=== PATIENT | female | born 1945 | race Caucasian/White ===

== ENCOUNTER 2024-01-10 18:43 | Emergency (ER) | payer MEDICARE, OTHER, SELFPAY ==
[2024-01-10 18:44] VITALS: BP 162/86
--- NOTE | 2024-01-10 19:40 | ED.MUSCINJ ---
HPI-Injury
General
Chief Complaint: Fall
Source: patient
Exam Limitations: none
Time Seen by Provider: 01/10/24 19:24
History of Present Illness-Injury
Is this injury a work related problem?: No
Is pt an associate of [facility]/[place]?: No
Initial Injury comments:
This is a 78 year old female that comes in with c/o left shoulder/arm pain. States that she tripped on a box and went down on the left shoulder. States that she has pain form the shoulder down to the elbow. States that she did not hit her head or
have any LOC. Denies any blood thinners. Denies any fever, chills, chest pain, SOB, abd pain, nausea, vomiting, diarrhea, headache, dizziness.
Past History
Past History
ED Past Medical History: HTN, Hypercholesterolemia and NIDDM
ED Past Surgical History: , Orthopedic (Left shoulder replacement, Right rotator cuff surgery) and Other (Cataracts)
Social History
Tobacco: Smoker
Alcohol: None
Drug: None
Personal:
Living: alone
Review of Systems
Review of Systems
All Other Systems: ROS reviewed and negative except as documented in HPI and ROS
Constitutional: Reports no symptoms; Denies fever or chills
EENT: Reports no symptoms
Respiratory: Reports no symptoms; Denies cough or trouble breathing
Cardiac: Reports no symptoms; Denies chest pain
ABD/GI: Reports no symptoms; Denies abdominal pain, nausea, vomiting or diarrhea
: Reports no symptoms
Musculoskeletal: Reports other (Left upper arm/shoulder pain)
Skin: Reports no symptoms
Neurological: Reports no symptoms; Denies dizzy or headache
Psychiatric: Reports no symptoms
Musculoskeletal Injury Exam
Musculoskeletal Injury Exam
Left Upper Arm:
Pain with Movement?: Moderate
Tender to palpation?: Mild
Soft tissue swelling?: Moderate
External deformity and angulation?: Mild
Joint effusion?: None
Contusion?: None
Hematoma-local bleeding into tissue?: None
Strain- Sprain- Tear (Connective tissue injury)?: None
Crepitus with movement?: No
Joint instability?: No
Malalignment/deformity?: No
Range of motion: Limited (Due to pain)
Distal skin color and temperature: normal-warm & good color
Capillary Refill: normal
Normal distal neurovascular exam?: Yes
Phy Exam
General Physical Exam
General Presentation: no apparent distress
General age: appears stated age
General Skin: warm and dry
General Habitus: elderly
General Mental: alert
General Hydration: appears well hydrated
ENT Exam
ENT Exam: TM's normal, pharynx normal and neck supple
Eye Exam
Eye Exam: EOMI
Musculoskeletal Exam
Musculoskeletal Exam: other (Negative for any cervical neck tenderness with palpation. Able to abduct, crossover, flex elbow and move wrist and fingers on right. Left upper arm swelling with tenderness over the humorous. )
Skin Exam
Skin Exam: normal color and no petechia
Psychiatric Exam
Psychiatric Exam: normal mood/affect
Injury Course
Orders/Labs/Results
Orders:
Orders
01/10/24 18:47
CR Humerus - Left Min 2 Views* Urgent
Comment:
Reason For Exam: fall
CR Shoulder, Trauma - Left Urgent
Comment:
Reason For Exam: fall
MDM/Problems Addressed
Differential Diagnosis Includes:
Humaral fracture, Left shoulder fracture or dispacement
MDM/Problems Addressed:
This is a 78 year old female that comes in with c/o fall. States that she tripped over a box and landed on the left shoulder. States that she can't move that arm.
Will get X-ray.
Back into see patient. Explained that she has a fracture at the base of the prosthesis. Will place in sling and have patient follow up with Dr. Mosher on Friday. Will give prescription for tramadole for pain. Patient to return with any concerns.
Chronic conditions affecting care:
Left shoulder surgery, Fracture left upper arm
Acute Exacerbation and/or Progression of Chronic Illness:
Shoulder surgery, Fracture left arm
*Radiology
Radiology exam reviewed: radiology read reviewed (Shoulder-acute periperosthetic fracture of the proximal left humerus at the level of the stem of the humeral prostheses with mild dispacement of fracture fracgments. The glenoid component of the
reverse total shoulder arthroplasty appears intact and well-positioned. The mild to distal segments of ) and other (X-ray cont- of the humerus are intact. The elbow joint allignment is maintained. )
*Pulse Oximetry
Patient hypoxic: no
*EKG
Interpreted by ED Provider?: NA
Rate: EKG- N/A
*Steam Turbine Assembler Interpretation
Rate: Steam Turbine Assembler- N/A
*Critical Care Note
Total Time (30-74mins, 75-104mins- exclusive of procedures): Not Applicable
ED Attending Note
-
Portions of this chart may have been created with voice recognition software.� Occasional wrong word or��sound alike� substitutions may have occurred due to the inherent limitations of voice recognition software.
Discharge Plan
Departure
Patient Disposition: Home (Routine Discharge)
Date of Disposition: 01/10/24
Time of Disposition: 19:54
Patient with high blood pressure during this ER visit?: Yes
Condition: Good
Covid-19: Not Applicable
Discharge Problem:
Fracture of proximal end of left humerus
Instructions: Preventing falls in adults, How to Use a Shoulder Sling, BLOOD PRESSURE, Narcotic Pain Medication, RICE Therapy
Prescriptions:
New
tramadol 50 mg tablet
50 mg PO Q8H PRN (Reason: Pain) Qty: 12 0RF
No Action
metformin 500 MG tablet
500 mg PO DAILY AT 0700
lisinopril-hydrochlorothiazide 1 EACH tablet
1 ea PO DAILY
simvastatin 40 MG tablet
40 mg PO 1800
glipizide 2.5 MG tablet extended release 24hr
2.5 mg PO DAILY
metformin 1,000 MG tablet
1,000 mg PO 1800
pioglitazone 30 MG tablet
30 mg PO DAILY
sennosides [senna] 1 TABLET tablet
2 tab PO BID 0RF
acetaminophen 325 MG tablet
650 mg PO Q4HWA 0RF
aspirin 325 MG tablet
325 mg PO DAILY 0RF
tramadol 50 MG tablet
25 mg PO Q6HPRN PRN (Reason: mild pain) 0RF
docusate sodium 100 MG capsule
100 mg PO BID 0RF
mupirocin 1 APPLIC ointment
1 applic intranasal BID 0RF
celecoxib 200 MG capsule
200 mg PO DAILY 0RF
tramadol [Ultram] 50 MG tablet
50 mg PO QID Qty: 30 0RF
tramadol 50 MG tablet
50 mg PO Q6HPRN PRN (Reason: moderate-severe pain) 0RF
hydrocodone-acetaminophen 5-325 mg tablet
1 tab PO Q4H PRN (Reason: Pain) Qty: 12 0RF
Referrals:
Chuy Mosher MD [Active] - Follow up in 2-3 days
Ruiz Brooke MD [Family Provider] -
Activity Restrictions/Additional Instructions:
As discussed, you have a fracture of the humerus that is just at the base of the prosthesis. Please use the sling when you are up moving around. Remove the sling to sleep and elevate on a pillow. Ice to the upper arm. You have had a prescription
sent to your Pharmacy for pain. You may also use Tylenol 1000mg every 6 hours for pain. Follow up with Dr. Mosher on Friday. IF YOU HAVE INCREASED OR CHANGING PAIN, OR YOU HAVE ANY OTHER CONCERNS PLEASE RETURN TO THE EMERGENCY ROOM.
Interventions
Interventions:
*Risk Screen - Suicide Last Done: 01/10/24 18:44
*General Assessment Last Done: 01/10/24 18:44
*Neglect/Abuse Screening Last Done: 01/10/24 18:44
Discharge Date and Time
Print Language: THAI
[2024-01-10] MEDS: TYLENOL 1000 MG PO (20:09)
[2024-01-10] MEDS: ULTRAM 50 MG PO (20:21)
== END 2024-01-10 21:12 | disposition home or self-care (01) ==
LOC: EMR 18:43
PROVIDERS: EMERGENCY PHYSICIAN Student in an Organized Health Care Education/Training Program; FAMILY PHYSICIAN Family Medicine
DX: M97.32XA Periprosthetic fracture around internal prosthetic left shoulder joint, initial encounter (principal); W18.09XA Striking against other object with subsequent fall, initial encounter; I10 Essential (primary) hypertension; E78.00 Pure hypercholesterolemia, unspecified; E11.36 Type 2 diabetes mellitus with diabetic cataract; F17.200 Nicotine dependence, unspecified, uncomplicated
CPT/HCPCS: 99283; 73030; 73060

== ENCOUNTER → 2024-01-16 12:58 | Outpatient (REF) | payer MEDICARE, OTHER, SELFPAY | LOC: HWRAD 12:58 | PROVIDERS: ATTENDING PHYSICIAN Physician Assistant Surgical; FAMILY PHYSICIAN Family Medicine | DX: Z96.612 Presence of left artificial shoulder joint (principal); S42.292A Other displaced fracture of upper end of left humerus, initial encounter for closed fracture | CPT/HCPCS: 73200 ==

== ENCOUNTER → 2024-01-19 13:51 | Outpatient (REF) | payer MEDICARE, OTHER, SELFPAY ==
[2024-01-19 15:15] LABS: % Basophils 0.6 % (0-2); % Eosinophils 2.1 % (0-6); % Immature Granulocytes 0.7 % (0-0.5); % Lymphocytes 24.8 % (20.5-51.1); % Monocytes 5.2 % (1.7-9.3); % Neutrophils 66.6 % (42.2-75.2); Absolute Basophils 0.1 10^3/uL (0-0.2); Absolute Eosinophils 0.2 10^3/uL (0-0.7); Absolute Immature Granulocytes 0.1 10^3/uL (0-0.05); Absolute Lymphocytes 2.6 10^3/uL (1.2-3.4); Absolute Monocytes 0.5 10^3/uL (0.1-0.6); Absolute Neutrophils 6.9 10^3/uL (1.4-6.5); Hematocrit 34.7 % (37.0-47.0); Hemoglobin 11.6 g/dL (12.0-16.0); Mean Corp Hgb Conc. 33.4 g/dL (33.0-37.0); Mean Corpuscular Hgb 33.8 pg (27.0-31.0); Mean Corpuscular Volume 101.2 fL (81.0-99.0); Mean Platelet Volume 10.6 fL (7.4-10.4); Nucleated Red Blood Cells % 0 %; Platelet Count 325 10^3/uL (130-400); Red Blood Cell Count 3.43 10^6/uL (4.20-5.40); Red Cell Dist. Width 14.4 % (11.5-14.5); White Blood Cell Count 10.3 10^3/uL (4.8-10.8)
[2024-01-19 15:59] LABS: ALT (SGPT) 24 U/L (0-35); AST (SGOT) 28 U/L (14-36); Albumin 4.3 g/dl (3.5-5.0); Alkaline Phosphatase 44 U/L (38-126); Blood Urea Nitrogen 15 mg/dl (7-17); Calcium 9.6 mg/dl (8.4-10.2); Carbon Dioxide 25 mmol/L (22-30); Chloride 102 mmol/L (98-107); Glucose 125 mg/dl (70-99); Potassium 4.7 mmol/L (3.5-5.1); Sodium 140 mmol/L (135-145); Total Bilirubin 0.7 mg/dl (0.2-1.3); Total Protein 6.9 g/dl (6.3-8.2); eGFR > 60.00
== END ==
LOC: REG 13:51
PROVIDERS: ATTENDING PHYSICIAN Specialist; FAMILY PHYSICIAN Family Medicine
DX: Z01.818 Encounter for other preprocedural examination (principal)
CPT/HCPCS: 36415; 80053; 85025; 87070; 93005

== ENCOUNTER 2024-01-20 13:00 | Inpatient (IN) | payer MEDICARE, OTHER, SELFPAY ==
[2024-01-20] VITALS (15 sets, daily range): BP systolic 123–163; BP diastolic 53–80; PULSE 91; O2SAT 97; BMI 27.9
[2024-01-20 06:39] LABS: Glucose - Point of Care 157 mg/dl (70-99)
[2024-01-20] MEDS: BACTROBAN NASAL 1 GRAM NASAL (06:49)
[2024-01-20] MEDS: TYLENOL 1000 MG PO (06:49)
[2024-01-20] MEDS: CELEBREX 200 MG PO (06:50)
[2024-01-20] MEDS: NORMOSOL-R/PLASMALYTE-A 1000 IV ×3 (06:50→13:54)
[2024-01-20 09:57] LABS: Glucose - Point of Care 178 mg/dl (70-99)
--- NOTE | 2024-01-20 12:26 | PTCARENOTE ---
Patient admitted from [facility] left reverse shoulder.Patient had a recent fall with fracture and said she has had terrible pain for the last ten days since the fall.She denies any pain now.Neurovascular assessment is within normal limits and
ongoing.The Primaseal dressing is intact with only scant drainage.The patient is in her bed with the call weller in reach.Her family is at the bedside.
--- NOTE | 2024-01-20 12:28 | W.PN.ORTHO ---
Today's Communication / Plan
-
D/c when clinically stable.
Assessment
.
Distal Motor Intact: Yes
Dressing:
Clean, dry and intact.
Assessment:
Closed displaced comminuted fracture of left humerus shaft s/p Revision of Reverse L TSA, ORIF of proximal humerus fracture, 01/20/24, by Dr. Mosher
- s/p L Reverse TSA [address] Mosher
- Tissue culture/gram stain pending
DVT prophylaxis - ASA, b/l venous foot pumps
HTN - + parameters - monitor BP
NIDDM, A1c 6.0 - monitor BS
- Resume home meds
- + SSI
Pre-op anemia - non-invasive hgb in AM
Hypercholesterolemia
Chronic low back pain
Depression
Osteopenia
Plan
.
Surgery / Date: Revision of Reverse L TSA by Dr. Mosher 01/20/24
DVT Prophylaxis: Aspirin
Activity:
Out of bed.
PT/OT
Discharge Plan: Home
Subjective
.
.:
Patient resting comfortably in bed.
L shoulder pain minimal and currently well tolerated.
Denies any new significant complaints.
Vital Signs and Labs
.
Vital Signs and Labs:
Temp Pulse Resp BP Pulse Ox
98.5 F 75 18 138/66 96
01/20/24 12:19 01/20/24 12:19 01/20/24 12:19 01/20/24 12:19 01/20/24 12:19
Physical Exam
-
HEENT: No pallor, cyanosis, or jaundice. Throat clear.
NECK: Supple. No JVD.
RESPIRATORY: Lungs clear to auscultation.
CVS: S1, S2 normal. RRR.�
ABDOMEN: Soft, non-tender. No distension.
EXTREMITIES: + LUE sling. Good ski topper b/l. Able to wiggle fingers b/l. Strength equal, no calf pain with palpation/dorsiflexion. Calves soft.
AIRCRAFT SERVICER: AOx3. No focal deficits. chinese language professor grossly intact
[2024-01-20] MEDS: ACTOS 30 MG PO (13:51)
[2024-01-20] MEDS: GLUCOPHAGE 500 MG PO (13:52)
[2024-01-20] MEDS: NOVOLOG FLEXPEN-MODERATE RESISTANCE SC (13:53)
[2024-01-20] MEDS: SYNTHROID 50 MCG PO (13:53)
[2024-01-20] MEDS: GLUCOTROL XL (EXTENDED RELEASE) 2.5 MG PO (14:43)
[2024-01-20] MEDS: ANCEF 5 IV ×2 (16:21→23:25)
[2024-01-20 17:17] LABS: Glucose - Point of Care 325 mg/dl (70-99)
[2024-01-20] MEDS: NOVOLOG FLEXPEN-MODERATE RESISTANCE 7 UNITS SC (17:17)
[2024-01-20] MEDS: LIPITOR 20 MG PO (17:18)
[2024-01-20] MEDS: GLUCOPHAGE 1000 MG PO (17:18)
[2024-01-20] MEDS: ASPIRIN 325 MG PO (17:18)
[2024-01-20] MEDS: COLACE PO (19:52)
[2024-01-20] MEDS: SENOKOT PO (19:52)
[2024-01-20] MEDS: BACTROBAN 2% OINTMENT 1 APPLIC NASAL (19:52)
[2024-01-20] MEDS: PEPCID 20 MG PO (21:17)
[2024-01-20 21:22] LABS: Glucose - Point of Care 259 mg/dl (70-99)
[2024-01-21 03:58] VITALS: BP 124/69
--- NOTE | 2024-01-21 04:31 | PTCARENOTE ---
Pt has been OOB to bathroom to void throughout this evening w standby assist x1. Assessment ongoing.
[2024-01-21] MEDS: SYNTHROID 50 MCG PO (05:31)
[2024-01-21 07:20] VITALS: BP 140/63
[2024-01-21 08:12] LABS: Glucose - Point of Care 114 mg/dl (70-99)
[2024-01-21] MEDS: NOVOLOG FLEXPEN-MODERATE RESISTANCE SC ×2 (08:12→12:02)
[2024-01-21] MEDS: ASPIRIN 325 MG PO (08:13)
[2024-01-21] MEDS: CELEBREX 200 MG PO (08:14)
[2024-01-21] MEDS: GLUCOTROL XL (EXTENDED RELEASE) 2.5 MG PO (08:14)
[2024-01-21] MEDS: COLACE 100 MG PO (08:14)
[2024-01-21] MEDS: SENOKOT 17.2 MG PO (08:14)
[2024-01-21] MEDS: ACTOS 30 MG PO (08:14)
[2024-01-21] MEDS: BACTROBAN 2% OINTMENT 1 APPLIC NASAL (08:14)
[2024-01-21] MEDS: GLUCOPHAGE 500 MG PO (08:16)
[2024-01-21 08:20] VITALS: BP 140/63
--- NOTE | 2024-01-21 09:02 | VNURNOTE ---
Chart reviewed. Patient is current with [facility]. Will continue to follow hospital course/ DC plans.
--- NOTE | 2024-01-21 09:02 | W.PN.ORTHO ---
Today's Communication / Plan
-
Await PT/OT recs.
D/c when clinically stable.
Assessment
.
Distal Motor Intact: Yes
Dressing:
Clean, dry and intact.
Assessment:
Closed displaced comminuted fracture of left humerus shaft s/p Revision of Reverse L TSA, ORIF of proximal humerus fracture, 01/20/24, by Dr. Mosher
- s/p L Reverse TSA [address] Mosher
- Tissue culture/gram stain pending but no growth after 18-24 hours
DVT prophylaxis - ASA, b/l venous foot pumps
L shoulder pain w/ radiation down arm - Will add low dose Gabapentin, lidocaine patches
- Reportedly denied pain meds overnight - did advise she take [place] for mod-severe pain prn to stay ahead of her pain
HTN - + parameters - BPs overall stable
NIDDM, A1c 6.0 - BS readings improving w/ resumption of home meds, + SSI while inpatient
Pre-op anemia - non-invasive hgb 12.4 POD 1
Hypercholesterolemia
Chronic low back pain
Depression
Osteopenia
Plan
.
Surgery / Date: Revision of Reverse L TSA by Dr. Mosher 01/20/24
DVT Prophylaxis: Aspirin
Activity:
Out of bed.
PT/OT
Subjective
.
.:
Patient examined resting in her chair.
Reports 10/10 L shoulder pain but visibly appears comfortable.
Denies any other new significant complaints.
Eager for potential d/c today.
Vital Signs and Labs
.
Vital Signs and Labs:
Temp Pulse Resp BP Pulse Ox
98.5 F 87 16 140/63 96
01/21/24 07:20 01/21/24 07:20 01/21/24 07:20 01/21/24 07:35 01/21/24 07:20
Non-invasive Hgb result: 12.4
Physical Exam
-
HEENT: No pallor, cyanosis, or jaundice. Throat clear.
NECK: Supple. No JVD.
RESPIRATORY: Lungs clear to auscultation.
CVS: S1, S2 normal. RRR.
ABDOMEN: Soft, non-tender. No distension.
EXTREMITIES: LUE sling. Good radial pulses b/l. Expected post-surgical LUE edema. Able to wiggle fingers, underground electrician b/l. No calf pain with palpation/dorsiflexion. Calves soft.
NURSING CENTER TUTOR: AOx3. No focal deficits. cable former grossly intact
[2024-01-21] MEDS: NORCO 5/325 1 TABLET PO (09:09)
[2024-01-21] MEDS: LIDOCAINE 4% PATCH 2 PATCH TOPICAL (10:53)
[2024-01-21] MEDS: NEURONTIN 100 MG PO (10:53)
[2024-01-21 12:00] LABS: Glucose - Point of Care 117 mg/dl (70-99)
[2024-01-21 12:01] VITALS: BP 145/71; PULSE 74; O2SAT 100
[2024-01-21 12:02] VITALS: BP 145/71; PULSE 79; O2SAT 99
--- NOTE | 2024-01-21 12:05 | CM ---
Addendum entered by Bree Carrasco 01/21/24 14:29:
Pt will have family support at home ATC
Original Note:
Met with pt and her son at bedside
Pt lives alone in a split-level home; no steps to enter, 8 steps to 2nd fl
Independent at baseline, ambulates with rollator
DME - shower chair, single point cane, rollator
SNF - denies past hx
HH - current with [facility]
Has ride at discharge
PCP - Dr Hand
Pharm - [facility]
PT/OT recs - HH. TT sent to [facility] Liaison for home care needs
Plan - anticipate home with [facility]
--- NOTE | 2024-01-21 12:11 | W.DS.TRANS ---
DC Summary - Vehicle Care Specialist
-
Discharge Instructions:
Sleep Apnea Risk Intermediate
Discharge Diagnosis/Procedures Closed displaced comminuted fracture of left
humerus shaft s/p Revision of Reverse L TSA,
ORIF of proximal humerus fracture, 01/20/24, by
Dr. Mosher
Diet Diabetic, Carb Controlled
Activity As tolerated
Additional Activity Non-weightbearing left upper extremity
Driving Restrictions Not until seen by your Dr
Bathing Restrictions OK to Shower
Other Services [facility],OT
Wound Care Leave dressing on until seen by surgeon's office
for follow-up.
Instructions:
Stand-Alone Forms: Total Shoulder Replacement D/C
Changes to Home Medications: Yes
Discharge Medications:
DC Medications w/original date entered in [facility]
glipizide 2.5 mg tablet, extended release 24 hr 2.5 mg PO DAILY 03/16/19
metformin 1,000 mg tablet 1,000 mg PO 1800 03/16/19
metformin 500 mg tablet 500 mg PO DAILY AT 0700 03/16/19
pioglitazone 30 mg tablet 30 mg PO DAILY 03/16/19
simvastatin 40 mg tablet 40 mg PO 1800 03/16/19
alendronate 70 mg tablet 70 mg PO QWEEK 01/19/24
levothyroxine 50 mcg tablet 50 mcg PO DAILY 01/19/24
acetaminophen 325 mg tablet 650 mg (2 x 325 mg) PO Q4HPRN PRN mild pain #0 tabs 01/20/24
aspirin 325 mg tablet 325 mg PO DAILY #30 tabs 01/20/24
celecoxib 200 mg capsule (Celebrex) 200 mg PO DAILY inflammation #14 caps 01/20/24
docusate sodium 100 mg capsule (Colace) 100 mg PO BID #30 caps 01/20/24
hydrocodone 5 mg-acetaminophen 325 mg tablet 1 - 2 tab PO Q6H PRN moderate-severe pain #30 tabs 01/20/24
lisinopril 20 mg tablet 20 mg PO DAILY #1 tab 01/20/24
ondansetron HCl 4 mg tablet 4 mg PO Q6H PRN nausea and vomiting #30 tabs 01/20/24
sennosides 8.6 mg tablet (senna) 17.2 mg (2 x 8.6 mg) PO BID #30 tabs 01/20/24
cyclobenzaprine 10 mg tablet 10 mg PO DAILY PRN muscle spasms #0 tabs 01/21/24
famotidine 20 mg tablet 20 mg PO HS #30 tabs 01/21/24
gabapentin 100 mg capsule 100 mg PO TID #30 caps 01/21/24
lidocaine 4 % topical patch 2 patch topical DAILY #30 ea 01/21/24
Home Medication Changes
acetaminophen 325 mg tablet 650 mg (2 x 325 mg) PO Q4HPRN PRN mild pain #0 tabs 01/20/24
aspirin 325 mg tablet 325 mg PO DAILY #30 tabs 01/20/24
celecoxib 200 mg capsule (Celebrex) 200 mg PO DAILY inflammation #14 caps 01/20/24
docusate sodium 100 mg capsule (Colace) 100 mg PO BID #30 caps 01/20/24
hydrocodone 5 mg-acetaminophen 325 mg tablet 1 - 2 tab PO Q6H PRN moderate-severe pain #30 tabs 01/20/24
ondansetron HCl 4 mg tablet 4 mg PO Q6H PRN nausea and vomiting #30 tabs 01/20/24
sennosides 8.6 mg tablet (senna) 17.2 mg (2 x 8.6 mg) PO BID #30 tabs 01/20/24
famotidine 20 mg tablet 20 mg PO HS #30 tabs 01/21/24
gabapentin 100 mg capsule 100 mg PO TID #30 caps 01/21/24
lidocaine 4 % topical patch 2 patch topical DAILY #30 ea 01/21/24
Pending Results: Yes (Tissure culture/gram stain )
--- NOTE | 2024-01-21 12:13 | VNURNOTE ---
Spoke with patient's son. He and patient are agreeable to resuming with [facility]. Informed him [facility] will be in touch to schedule resumption visit within a day or 2 after DC. Son agreeable. Resumption referral in [facility].
[2024-01-21 12:15] VITALS: BP 145/71
--- NOTE | 2024-02-06 13:41 | W.PN.UPDATE ---
Update Note
Progress Note Update
Pt being treated in a outpatient setting was in error, correct level of care was inpatient.
== END 2024-01-21 13:39 | disposition home health service (06) | DRG 483 ==
LOC: EICU 13:00
PROVIDERS: ADMITTING PHYSICIAN Specialist
PROC: 0PSG04Z Reposition Left Humeral Shaft with Internal Fixation Device, Open Approach (ICD-10-PCS; 2024-01-20)
PROC: 0RPK0JZ Removal of Synthetic Substitute from Left Shoulder Joint, Open Approach (ICD-10-PCS; 2024-01-20)
PROC: 0RRK00Z Replacement of Left Shoulder Joint with Reverse Ball and Socket Synthetic Substitute, Open Approach (ICD-10-PCS; 2024-01-20)
DX: S42.352A Displaced comminuted fracture of shaft of humerus, left arm, initial encounter for closed fracture (principal); M97.32XA Periprosthetic fracture around internal prosthetic left shoulder joint, initial encounter; W01.0XXA Fall on same level from slipping, tripping and stumbling without subsequent striking against object, initial encounter; S42.202A Unspecified fracture of upper end of left humerus, initial encounter for closed fracture; M81.0 Age-related osteoporosis without current pathological fracture; I10 Essential (primary) hypertension; E11.9 Type 2 diabetes mellitus without complications; M19.012 Primary osteoarthritis, left shoulder; E78.00 Pure hypercholesterolemia, unspecified; G89.29 Other chronic pain; M54.50 Low back pain, unspecified; F32.A Depression, unspecified; D64.9 Anemia, unspecified; Z79.84 Long term (current) use of oral hypoglycemic drugs
CPT/HCPCS: 23474; 23615; C1776; C1713; 73020; 76000; 82962; 83036; 86850; 86900; 86901; 87070; 87176; 87205; 97110; 97116; 97162; 97167; 97535

== ENCOUNTER 2024-04-26 12:33 | Emergency (ER) | payer MEDICARE, OTHER, SELFPAY ==
[2024-04-26 12:35] VITALS: BP 135/83
--- NOTE | 2024-04-26 12:37 | ED.GENMED ---
History of Present Illness
General
Chief Complaint: Head Injury
Source: patient and ambulance crew
Exam Limitations: none
Time Seen by Provider: 04/26/24 12:38
Nursing documentation reviewed up to this point in time: agreed with
History of Present Illness
History of Present Illness:
79-year-old female presenting to the emergency department today after a slip and fall prior to arrival at her home she hit the back of her head did not lose consciousness no nausea vomiting numbness or weakness. This happened a few hours prior to
arrival. Does feel mildly diffusely but denies any focal discomfort other than to the back of her head where she hit directly. No neck pain no numbness or weakness.
Past History
Past History
ED Past Medical History: HTN, Hypercholesterolemia and NIDDM
ED Past Surgical History: , Orthopedic (Left shoulder replacement, Right rotator cuff surgery) and Other (Cataracts)
Social History
Tobacco: Smoker
Alcohol: None
Drug: None
Personal:
Living: alone
Review of Systems
Review of Systems
Allergies reviewed?: Yes
All Other Systems: ROS reviewed and negative except as documented in HPI and ROS
Phy Exam
Physical Exam
Physical Exam:
GENERAL: Alert , in no apparent distress
EYE: pupils equal and reactive
NECK: Supple, no significant adenopathy.
ENT: Abrasion to the occipital portion of the scalp. No bleed o/p clr, mmm.
CARDIAC: Regular rate and rhythm .
LUNGS: Clear breath sounds bilaterally, no acute respiratory distress, no wheezes/rales/rhonchi
ABDOMEN: Soft, without focal tenderness, no r/g, no cvat
NEUROLOGICAL: Alert and oriented, no focal neuro deficits
SKIN: Warm and dry, skin intact.
MUSCULOSKELETAL: No edema, well perfused.
PSYCH: Normal and appropriate interaction.
Course
Orders/Labs/Results
Orders:
Orders
04/26/24 12:36
CT Head W/o Iv Contrast Urgent
Comment:
Reason For Exam: fall hit back of head not on thinners
Vital Signs
Initial and Last Documented VS:
Initial Vital Signs
Temp Pulse Resp BP Pulse Ox
97.6 F 80 17 135/83 96
04/26/24 12:35 04/26/24 12:35 04/26/24 12:35 04/26/24 12:35 04/26/24 12:35
Last Documented Vital Signs
Temp Pulse Resp BP Pulse Ox
97.6 F 80 17 135/83 96
04/26/24 12:35 04/26/24 12:35 04/26/24 12:35 04/26/24 12:35 04/26/24 12:35
MDM/Problems Addressed
MDM/Problems Addressed:
79-year-old female presenting to the emergency department today after ground-level fall. Denies any loss of consciousness numbness weakness nausea vomiting no neck pain mildly achy but no specific focal pain. Does have a small contusion to the
back of her head. Plan for CT scan for further assessment. Otherwise no signs of focal injury. Able to ambulate here. CT scan negative. Stable for outpatient management return precautions given.
*Critical Care Note
Total Time (30-74mins, 75-104mins- exclusive of procedures): Not Applicable
ED Attending Note
-
Portions of this chart may have been created with voice recognition software.� Occasional wrong word or��sound alike� substitutions may have occurred due to the inherent limitations of voice recognition software.
Discharge Plan
Departure
Patient Disposition: Home (Routine Discharge)
Date of Disposition: 04/26/24
Time of Disposition: 13:32
Patient with high blood pressure during this ER visit?: No
Condition: Good
Covid-19: Not Applicable
Discharge Problem:
Fall, Contusion of scalp
Instructions: Contusion (DC)
Prescriptions:
No Action
metformin 500 MG tablet
500 mg PO DAILY AT 0700
simvastatin 40 MG tablet
40 mg PO 1800
glipizide 2.5 MG tablet extended release 24hr
2.5 mg PO DAILY
metformin 1,000 MG tablet
1,000 mg PO 1800
pioglitazone 30 MG tablet
30 mg PO DAILY
alendronate 70 mg Tablet
70 mg PO QWEEK
Rx Instructions:
Q Sundays
levothyroxine 50 mcg Tablet
50 mcg PO DAILY
ondansetron HCl 4 mg tablet
4 mg PO Q6H PRN (Reason: nausea and vomiting) Qty: 30 0RF
hydrocodone-acetaminophen 5-325 mg tablet
1 - 2 tab PO Q6H PRN (Reason: moderate-severe pain) Qty: 30 0RF
Rx Instructions:
1 tab for moderate pain, 2 if severe.
Dx total joint.
aspirin 325 mg tablet
325 mg PO DAILY Qty: 30 0RF
Rx Instructions:
Take daily x4 weeks for blood clot prevention.
docusate sodium [Colace] 100 mg capsule
100 mg PO BID Qty: 30 0RF
sennosides [senna] 8.6 mg tablet
17.2 mg PO BID Qty: 30 0RF
celecoxib [Celebrex] 200 mg capsule
200 mg PO DAILY Qty: 14 0RF
Rx Instructions:
Take with food.
DO NOT take within 2 hours of Aspirin.
acetaminophen 325 MG tablet
650 mg PO Q4HPRN PRN (Reason: mild pain) Qty: 0 0RF
Rx Instructions:
DO NOT exceed >4000 mg daily while on [place].
1 [place] tab = 325 mg Tylenol.
lisinopril 20 mg Tablet
20 mg PO DAILY Qty: 1 0RF
Rx Instructions:
HOLD IF systolic blood pressure <130 while on [place].
lidocaine 4 % Adhesive Patch,Medicated
2 patch topical DAILY Qty: 30 0RF
Rx Instructions:
Apply to sides of left shoulder.
DO NOT place over incision.
12 hours on, 12 hours off.
famotidine 20 mg Tablet
20 mg PO HS Qty: 30 0RF
Rx Instructions:
Take nightly while on Celebrex to reduce GI upset
gabapentin 100 mg Capsule
100 mg PO TID Qty: 30 0RF
cyclobenzaprine 10 mg Tablet
10 mg PO DAILY PRN (Reason: muscle spasms) Qty: 0 0RF
Activity Restrictions/Additional Instructions:
You came to the emergency department today with concerns after a fall. Here your head CT was normal. Please rest and ice over the next few days. Return to the emergency department any worsening, new or concerning symptoms.
Interventions
Interventions:
*Risk Screen - Suicide Last Done: 04/26/24 12:35
*General Assessment Last Done: 04/26/24 12:35
*Neglect/Abuse Screening Last Done: 04/26/24 12:35
ED- Neurological Assessment Last Done: 04/26/24 13:16
ED-Skin Assessment Last Done: 04/26/24 13:16
Discharge Date and Time
Print Language: LATVIAN
[2024-04-26 13:41] VITALS: BP 165/81
== END 2024-04-26 13:43 | disposition home or self-care (01) ==
LOC: EMR 12:33
PROVIDERS: EMERGENCY PHYSICIAN Student in an Organized Health Care Education/Training Program; FAMILY PHYSICIAN Family Medicine
DX: S00.03XA Contusion of scalp, initial encounter (principal); W01.0XXA Fall on same level from slipping, tripping and stumbling without subsequent striking against object, initial encounter; I10 Essential (primary) hypertension; E78.00 Pure hypercholesterolemia, unspecified; E11.9 Type 2 diabetes mellitus without complications; F17.200 Nicotine dependence, unspecified, uncomplicated; Z96.612 Presence of left artificial shoulder joint
CPT/HCPCS: 99284; 70450

== ENCOUNTER 2024-05-01 16:47 | Emergency (ER) | payer MEDICARE, OTHER, SELFPAY ==
[2024-05-01 17:04] VITALS: BP 138/83
[2024-05-01 17:41] LABS: % Basophils 0.5 % (0-2); % Eosinophils 0.6 % (0-6); % Immature Granulocytes 0.8 % (0-0.5); % Lymphocytes 12.6 % (20.5-51.1); % Monocytes 6.7 % (1.7-9.3); % Neutrophils 78.8 % (42.2-75.2); Absolute Basophils 0.1 10^3/uL (0-0.2); Absolute Eosinophils 0.1 10^3/uL (0-0.7); Absolute Immature Granulocytes 0.1 10^3/uL (0-0.05); Absolute Lymphocytes 1.9 10^3/uL (1.2-3.4); Absolute Neutrophils 11.9 10^3/uL (1.4-6.5); Hematocrit 40.9 % (37.0-47.0); Hemoglobin 13.5 g/dL (12.0-16.0); Mean Corpuscular Hgb 32.3 pg (27.0-31.0); Mean Corpuscular Volume 97.8 fL (81.0-99.0); Mean Platelet Volume 10.9 fL (7.4-10.4); Nucleated Red Blood Cells % 0 %; Platelet Count 246 10^3/uL (130-400); Red Blood Cell Count 4.18 10^6/uL (4.20-5.40); Red Cell Dist. Width 13.1 % (11.5-14.5); White Blood Cell Count 15.1 10^3/uL (4.8-10.8)
[2024-05-01 17:55] LABS: ALT (SGPT) 20 U/L (0-35); AST (SGOT) 30 U/L (14-36); Albumin 4.6 g/dl (3.5-5.0); Alkaline Phosphatase 55 U/L (38-126); Blood Urea Nitrogen 30 mg/dl (7-17); Carbon Dioxide 23 mmol/L (22-30); Chloride 103 mmol/L (98-107); Glucose 198 mg/dl (70-99); Sodium 139 mmol/L (135-145); Total Bilirubin 0.5 mg/dl (0.2-1.3); Total Protein 7.5 g/dl (6.3-8.2)
[2024-05-01 21:03] VITALS: BP 175/67
--- NOTE | 2024-05-01 21:38 | ED.GENMED ---
History of Present Illness
General
Chief Complaint: Fall
Source: patient and family (daughter and son)
Exam Limitations: dementia (Slight Dementia)
Time Seen by Provider: 05/01/24 20:41
History of Present Illness
History of Present Illness:
This is a 79 year old female that comes in with c/o fall. Family with patient state that this is her Third fall since March. States that she fell on Friday when she was out on the porch and forgot that she had her alert to push was there for an
hour. Patient was unable to get up at that time. Then today the neighbor was bringing her food and found her at the bottom of the steps. Patient does not know if she was going up or coming down. States that she has chest pain over the sternum and
that her left ribs hurt. Family states that she lives by herself and occasionally she has had some hallucinations. Patient states that she she dose have a headache. Family states that they were there this morning and patient was incont of her urine.
Denies any fever, chills, SOB, abd pain, nausea, vomiting, diarrhea, dizziness, urinary burning.
Past History
Past History
ED Past Medical History: HTN, Hypercholesterolemia, NIDDM and Hypothyroidism
ED Past Surgical History: , Orthopedic (Left shoulder replacement, Right rotator cuff surgery) and Other (Cataracts Left, )
Social History
Tobacco: Smoker
Alcohol: None
Drug: None
Personal:
Living: alone
Review of Systems
Review of Systems
All Other Systems: ROS reviewed and negative except as documented in HPI and ROS
Constitutional: Reports no symptoms; Denies fever or chills
EENT: Reports no symptoms
Respiratory: Denies cough or trouble breathing
Cardiac: Reports other (sternal pain)
ABD/GI: Reports no symptoms; Denies abdominal pain, nausea, vomiting or diarrhea
: Reports incontinence (This morning); Denies dysuria, frequency or urgency
Musculoskeletal: Reports no symptoms
Skin: Reports no symptoms
Neurological: Reports headache; Denies dizzy
Psychiatric: Reports hallucinations (Occasional)
Phy Exam
General Physical Exam
General Presentation: no apparent distress
General age: appears stated age
General Skin: warm and dry
General Habitus: elderly
General Mental: confused (Slightly confused)
General Hydration: dry mucous membranes
ENT Exam
ENT Exam: TM's normal, pharynx normal and neck supple
Eye Exam
Eye Exam: EOMI
Cardiovascular Exam
Cardiovascular Exam: regular rate/rhythm, no edema and normal peripheral pulses
Pulmonary Exam
Pulmonary Exam: no respiratory distress, chest non tender, no rhonchi, no cough and other (Crackles at bases)
Gastrointestinal Exam
Gastrointestinal Exam: normal bowel sounds, non tender, soft, no organomegaly, no pulsatile mass and non distended
Musculoskeletal Exam
Musculoskeletal Exam: other (Limited left arm movement due to surgery, Left lateral rib tenderness with palpation, Negative for any discomfort with flexion of the knee's)
Skin Exam
Skin Exam: normal color, warm/dry, no rash and no petechia
Psychiatric Exam
Psychiatric Exam: normal mood/affect
Course
Orders/Labs/Results
Orders:
Orders
05/01/24 17:07
Electrocardiogram (*1) Urgent
Reason for Study: Chest Pain
EKG- Treatment ONCE
Ribs, Left 3 View W/PA Chest CR [CR Ribs-left 3 Vw W/pa Chest] Urgent
Comment:
Reason For Exam: left rib pain
05/01/24 17:20
Complete Blood Count/With Diff Urgent
Comprehensive Metabolic Panel Urgent
05/01/24 21:35
CT Cervical Spine W/o Iv Contr Urgent
Comment:
Reason For Exam: Fall
CT Head W/o Iv Contrast Urgent
Comment:
Reason For Exam: Fall Unwitnessed
Straight cath- Treatment ONCE
05/01/24 21:36
0.9% Sodium Chloride 500 ml [Nss] 500 ml IV BOLUS
05/01/24 21:40
Sternum 2 Views CR [CR Sternum Min 2 Views] Urgent
Comment:
Reason For Exam: Sternal pain
05/01/24 21:41
Acetaminophen [Tylenol] 1,000 mg PO NOW STA
05/01/24 21:59
Urinalysis Reflex To Culture Urgent
Date Specimen was Collected: 05/01/24
Time Specimen was Collected: 21:38
05/01/24 22:23
Troponin I Urgent
Abnormal Lab Results
05/01/24 05/01/24
17:20 21:59
WBC 15.1 H 10^3/uL
(4.8-10.8)
RBC 4.18 L 10^6/uL
(4.20-5.40)
MCH 32.3 H pg
(27.0-31.0)
MPV 10.9 H fL
(7.4-10.4)
Abs Immat Gran (auto) 0.1 H 10^3/uL
(0-0.05)
Absolute Neuts (auto) 11.9 H 10^3/uL
(1.4-6.5)
Absolute Monos (auto) 1.0 H 10^3/uL
(0.1-0.6)
Immature Gran % 0.8 H %
(0-0.5)
Neutrophils % 78.8 H %
(42.2-75.2)
Lymphocytes % 12.6 L %
(20.5-51.1)
BUN 30 H mg/dl
(7-17)
Glucose 198 H mg/dl
(70-99)
Urine Glucose 1+ A
(Negative)
05/01/24 17:20
05/01/24 17:20
Leukocytosis, Dehydration. Hyperglycemia.
Vital Signs
Initial and Last Documented VS:
Initial Vital Signs
Temp Pulse Resp BP Pulse Ox
98.9 F 81 18 138/83 98
05/01/24 17:04 05/01/24 17:04 05/01/24 17:04 05/01/24 17:04 05/01/24 17:04
Last Documented Vital Signs
Temp Pulse Resp BP Pulse Ox
98.9 F 80 16 175/67 97
05/01/24 17:04 05/01/24 21:03 05/01/24 21:03 05/01/24 21:03 05/01/24 21:03
MDM/Problems Addressed
Differential Diagnosis Includes:
Dementia, UTI,
MDM/Problems Addressed:
This is a 79 year old female that comes in with c/o falls. Family states that this is the third fall since March. Patient has had some hallucinations and is more confused then normal. States that she fell on Friday and was on her Porch for an
hour out in the cold. Today they are not sure if she was going up the steps or down and was found at the bottom of the steps by a neighbor.
Will check labs. CT head and neck. Urine. Give IV fluids.
Spoke with patient son and daughter. They feels that the patient can no longer live by herself. Explained that it appears that she has 2 rib fracture on the left. Patient is confused at times and is unable to live by herself.
Chest- X-ray was read by the radiologist and there are fractures of 3-7 rib with a minimal pleural effusion. Will transfer. Back into see patient and family and reviewed that patient will need to be transferred as a Trauma. Attempting to transfer to
[place].
Spoke with Dr. Titus and he will except patient. Patient going to [place] ER.
Chronic conditions affecting care:
Dementia
Chronic conditions affecting care: DM
Acute Exacerbation and/or Progression of Chronic Illness:
Dementia
*Radiology
Radiology exam reviewed: preliminary read by ED provider (4th and 5th rib fracture), radiology read reviewed (Fracture involving he left fifth through the seventh ribs, appear acute. Subtle deformity of the left third and fourth ribs, most likely
also acute fractures. Minimal blunting of the left lateral costophrenic angles suggesting a minimal left pleural effusion. NO evidence of pneumothorax. ), all reviewed NAD by ED Provider (CT head and cervical spine night hawk-No acute intracranial
hemorrhage or other acute intracranial process. No visualized soft tissue abnormality or fracture. Findings overall similar to recent prior. CT cervical spine-No fracture or abnormality in alignment seen. Normal prevertebral soft tissues. ) and
other (CT cont; Degenerative changes without significant spinal canal stenosis. )
*Pulse Oximetry
Patient hypoxic: no
*EKG
Interpreted by ED Provider?: Yes
Heart Rate: 77
Rate: normal
Rhythm: sinus
[place]: left axis deviation
Interval: normal interval
QRS Pattern: normal QRS
Ischemia: no ischemia
*Director Of Search Engine Optimization Interpretation
Rate: Director Of Search Engine [employer]imization- N/A
*Critical Care Note
Total Time (30-74mins, 75-104mins- exclusive of procedures): Not Applicable
ED Attending Note
-
Portions of this chart may have been created with voice recognition software.� Occasional wrong word or��sound alike� substitutions may have occurred due to the inherent limitations of voice recognition software.
Discharge Plan
Departure
Patient Disposition: Acute Care Hospital
Date of Disposition: 05/01/24
Time of Disposition: 23:19
Patient with high blood pressure during this ER visit?: Yes
Condition: Good
Covid-19: Not Applicable
Discharge Problem:
Falls frequently, Left rib fracture
Prescriptions:
No Action
metformin 500 MG tablet
500 mg PO DAILY AT 0700
simvastatin 40 MG tablet
40 mg PO 1800
metformin 1,000 MG tablet
1,000 mg PO 1800
pioglitazone 30 MG tablet
30 mg PO DAILY
alendronate 70 mg Tablet
70 mg PO QWEEK
Rx Instructions:
Q Sundays
levothyroxine 50 mcg Tablet
50 mcg PO DAILY
lisinopril 20 mg Tablet
20 mg PO DAILY Qty: 1 0RF
Rx Instructions:
HOLD IF systolic blood pressure <130 while on [place].
Referrals:
Ruiz Brooke MD [Family Provider] -
Hospital Transfer
Other hospital: [facility]
I certify that the patient requires transfer: Yes
Discussed case with accepting physician: T[facility]
Reason for transfer: higher level of care and specialties available
Interventions
Interventions:
*Risk Screen - Suicide Last Done: 05/01/24 17:04
*General Assessment Last Done: 05/01/24 17:04
*Neglect/Abuse Screening Last Done: 05/01/24 17:04
*ED COVID-19 Vaccine History Last Done: 05/01/24 17:04
ED-Musculoskeletal Assessment Last Done: 05/01/24 21:00
ED- Neurological Assessment Last Done: 05/01/24 21:00
ED-Skin Assessment Last Done: 05/01/24 21:00
Discharge Date and Time
Print Language: BURMESE
[2024-05-01] MEDS: NSS 500 IV (22:06)
[2024-05-01] MEDS: TYLENOL 1000 MG PO (22:08)
[2024-05-01 22:11] LABS: Urine Albumin Negative (Neg - Trace); Urine Bilirubin Negative (Negative); Urine Character Clear (Clear); Urine Color Yellow; Urine Glucose 1+ (Negative); Urine Ketone Negative (Negative); Urine Leukocyte Negative (Negative); Urine Nitrite Negative (Negative); Urine Occult Blood Negative (Negative); Urine Specific Gravity 1.025 (<1.030); Urine Urobilinogen Negative (Neg - 1+)
[2024-05-01 22:53] LABS: Troponin I 0.018 ng/ml
[2024-05-01 23:24] VITALS: BMI 27.5
[2024-05-01 23:57] VITALS: BP 139/74
[2024-05-02 00:01] VITALS: BP 140/75
--- NOTE | 2024-05-02 00:54 | EDRN ---
Report given to Gisell at [facility]
[2024-05-02 01:00] VITALS: BP 123/61
[2024-05-02 02:00] VITALS: BP 103/61
--- NOTE | 2024-05-02 02:05 | EDRN ---
Report given to Acute Care ambulance crew
== END 2024-05-02 02:24 | disposition short-term general hospital (02) ==
LOC: EMR 16:47
PROVIDERS: Clinical Nurse Specialist Family Health; Emergency Medicine; EMERGENCY PHYSICIAN Emergency Medicine; FAMILY PHYSICIAN Family Medicine
DX: S22.42XA Multiple fractures of ribs, left side, initial encounter for closed fracture (principal); R51.9 Headache, unspecified; W19.XXXA Unspecified fall, initial encounter; J90 Pleural effusion, not elsewhere classified; F03.90 Unspecified dementia, unspecified severity, without behavioral disturbance, psychotic disturbance, mood disturbance, and anxiety; R44.3 Hallucinations, unspecified; I10 Essential (primary) hypertension; E11.65 Type 2 diabetes mellitus with hyperglycemia; E11.36 Type 2 diabetes mellitus with diabetic cataract; E03.9 Hypothyroidism, unspecified; E78.00 Pure hypercholesterolemia, unspecified; F17.200 Nicotine dependence, unspecified, uncomplicated; R29.6 Repeated falls; Z96.612 Presence of left artificial shoulder joint; Z88.5 Allergy status to narcotic agent
CPT/HCPCS: 99285; 96360; 51701; 70450; 71101; 71120; 72125; 80053; 81003; 84484; 85025; 93005

== ENCOUNTER 2024-08-10 07:29 | Emergency (ER) | payer MEDICARE, OTHER, SELFPAY ==
[2024-08-10 07:31] VITALS: BP 155/99
[2024-08-10 07:34] VITALS: BP 155/99
[2024-08-10 07:36] VITALS: BMI 27.9
--- NOTE | 2024-08-10 07:53 | ED.GENMED ---
History of Present Illness
General
Chief Complaint: Fall
Source: patient
Exam Limitations: none
Time Seen by Provider: 08/10/24 07:41
History of Present Illness
History of Present Illness:
79yoF with a history of type 2 diabetes, hypertension, hyperlipidemia, and hypothyroidism presenting via EMS for evaluation after a fall. Patient is a resident at [facility]. She was walking with her walker this morning and lost her balance and
fell backwards. Patient states everything happened so quickly and 'everything is a blur.' She struck the back of her head against the floor. There was no LOC. She reports a headache. She denies any visual changes, neck pain, vomiting. Her only
other injury is a minor abrasion to the L elbow. She does not take any blood thinners.
Past History
Past History
ED Past Medical History: HTN, Hypercholesterolemia, NIDDM and Hypothyroidism
ED Past Surgical History: , Orthopedic (Left shoulder replacement, Right rotator cuff surgery) and Other (Cataracts Left, )
Social History
Tobacco: Smoker
Alcohol: None
Drug: None
Personal:
Living: alone
Phy Exam
General Physical Exam
General Presentation: well appearing and no apparent distress
General age: appears stated age
General Skin: warm and dry
General Habitus: normal
General Mental: alert
ENT Exam
ENT Exam: other (+Small occipital hematoma with tenderness. No other external signs of head trauma. No cervical spine tenderness.)
Eye Exam
Eye Exam: PERRL and conjunctiva normal
Pulmonary Exam
Pulmonary Exam: lungs clear, no respiratory distress, no rales, chest non tender, no crackles and no rhonchi
Gastrointestinal Exam
Gastrointestinal Exam: non tender, soft and non distended
Neurological Exam
Neurological Exam: alert
[place] Coma Scale
Eye Opening: Spontaneous
Verbal Response: Oriented
Motor Response: Obeys Commands
GCS Total Score: 15
Musculoskeletal Exam
Musculoskeletal Exam: other (Minor L elbow abrasion. No bony tenderness. ROM intact.)
Skin Exam
Skin Exam: normal color and warm/dry
Psychiatric Exam
Psychiatric Exam: normal mood/affect
Course
Orders/Labs/Results
Orders:
Orders
08/10/24 07:48
CT Cervical Spine W/o Iv Contr Urgent
Comment:
Reason For Exam: fall, head injury
CT Head W/o Iv Contrast Urgent
Comment:
Reason For Exam: fall, head injury
08/10/24 07:50
Acetaminophen [Tylenol] 1,000 mg PO NOW STA
Vital Signs
Initial and Last Documented VS:
Initial Vital Signs
Temp Pulse Resp BP Pulse Ox
98.3 F 65 16 155/99 97
08/10/24 07:31 08/10/24 07:31 08/10/24 07:31 08/10/24 07:31 08/10/24 07:31
Last Documented Vital Signs
Temp Pulse Resp BP Pulse Ox
98.3 F 74 18 154/63 96
08/10/24 07:31 08/10/24 10:00 08/10/24 10:00 08/10/24 10:00 08/10/24 10:00
MDM/Problems Addressed
Differential Diagnosis Includes:
79yoF here after a fall this morning at her retirement. Fell backwards striking head against floor. No LOC. Arrives with an occipital hematoma. VSS. She is awake, alert, with a GCS of 15. No cervical spine tenderness. Differential diagnosis
includes but is not limited to: Hematoma, closed head injury concussion, cranial hemorrhage, fracture
Initial ED plan: Check CT head and cervical spine. Tylenol for pain.
*Critical Care Note
Total Time (30-74mins, 75-104mins- exclusive of procedures): Not Applicable
Update Note
Update Note:
Imaging is negative for traumatic injuries. Patient stable for discharge back to her nursing facility. Supportive care discussed including ice.
ED Attending Note
-
Portions of this chart may have been created with voice recognition software.� Occasional wrong word or��sound alike� substitutions may have occurred due to the inherent limitations of voice recognition software.
Discharge Plan
Departure
Patient Disposition: Home (Routine Discharge)
Date of Disposition: 08/10/24
Time of Disposition: 09:20
Patient with high blood pressure during this ER visit?: Yes
Discharge Problem:
Ground-level fall, Hematoma of occipital region of scalp
Instructions: Head Injury in Adults (DC), Preventing falls in adults
Prescriptions:
No Action
metformin 500 MG tablet
500 mg PO DAILY AT 0700
simvastatin 40 MG tablet
40 mg PO QPM
metformin 1,000 MG tablet
1,000 mg PO DAILY@1700
pioglitazone 30 MG tablet
30 mg PO DAILY
levothyroxine 50 mcg Tablet
50 mcg PO DAILY
lisinopril 20 mg Tablet
20 mg PO DAILY Qty: 1 0RF
Rx Instructions:
HOLD IF systolic blood pressure <130 while on [place].
acetaminophen [Tylenol] 325 mg Tablet
650 mg PO Q6HPRN PRN (Reason: mild pain)
calcium carbonate [Calcium 500] 500 mg calcium (1,250 mg) Tablet
500 mg PO QPM
Activity Restrictions/Additional Instructions:
Please follow-up with your family doctor. Return to the ER with any new or worsening symptoms.
Interventions
Interventions:
*Risk Screen - Suicide Last Done: 08/10/24 08:34
*General Assessment Last Done: 08/10/24 10:51
*Neglect/Abuse Screening Last Done: 08/10/24 08:34
*ED- Fall Risk Assessment Last Done: 08/10/24 10:51
*ED COVID-19 Vaccine History Last Done: 08/10/24 10:51
*Nursing Disposition Last Done: 08/10/24 10:51
ED-Musculoskeletal Assessment Last Done: 08/10/24 07:37
ED- Neurological Assessment Last Done: 08/10/24 07:37
ED-Skin Assessment Last Done: 08/10/24 07:37
Discharge Date and Time
Discharge Date/Time: 08/10/24 10:51
Print Language: SCOTTISH
[2024-08-10 08:00] VITALS: BP 150/68
[2024-08-10] MEDS: TYLENOL 1000 MG PO (08:02)
[2024-08-10 09:46] VITALS: BP 157/73
[2024-08-10 10:00] VITALS: BP 154/63
== END 2024-08-10 10:51 | disposition home or self-care (01) ==
LOC: EMR 07:29
PROVIDERS: EMERGENCY PHYSICIAN Emergency Medicine; FAMILY PHYSICIAN Student in an Organized Health Care Education/Training Program
DX: S00.03XA Contusion of scalp, initial encounter (principal); R51.9 Headache, unspecified; S50.312A Abrasion of left elbow, initial encounter; W18.30XA Fall on same level, unspecified, initial encounter; Y93.01 Activity, walking, marching and hiking; E78.00 Pure hypercholesterolemia, unspecified; I10 Essential (primary) hypertension; E11.36 Type 2 diabetes mellitus with diabetic cataract; E03.9 Hypothyroidism, unspecified; F17.200 Nicotine dependence, unspecified, uncomplicated; Z96.612 Presence of left artificial shoulder joint; Z79.84 Long term (current) use of oral hypoglycemic drugs; Z88.5 Allergy status to narcotic agent
CPT/HCPCS: 99284; 70450; 72125

== ENCOUNTER 2024-10-18 02:12 | Observation (INO) | payer MEDICARE, OTHER, SELFPAY ==
[2024-10-17 20:12] VITALS: BP 127/62
--- NOTE | 2024-10-17 20:29 | ED.GENMED ---
History of Present Illness
General
Chief Complaint: Back Pain
Time Seen by Provider: 10/17/24 20:11
History of Present Illness
History of Present Illness:
Patient presents to the emergency department with low back pain. Pain came on fairly suddenly around 2 PM. No radiation. On the right lumbar region. She describes it as muscle spasms. Has had episodes of this in the past though has never had a
work up with any imaging. Denies nausea or vomiting. Denies fever. Denies urinary symptoms. Denies chest pain or shortness of breath
Past History
Past History
ED Past Medical History: HTN, Hypercholesterolemia, NIDDM and Hypothyroidism
ED Past Surgical History: , Orthopedic (Left shoulder replacement, Right rotator cuff surgery) and Other (Cataracts Left, )
Social History
Tobacco: Smoker
Alcohol: None
Drug: None
Personal:
Living: alone
Phy Exam
Physical Exam
Physical Exam:
GENERAL APPEARANCE: NAD, well developed/ well nourished
EYES lids/conjunctiva normal
EARS/NOSE/THROAT Mucous membranes moist
HEAD/NECK normocephalic atraumatic, neck is supple.
RESPIRATORY respiratory effort normal, speaks in full sentences, no accessory muscle use. Lungs clear to auscultation without rhonchi, wheezes, rales
CARDIAC Regular rate and rhythm, no edema.
ABDOMINAL Soft, ND/NT. No pulsatile masses on exam, rebound tenderness, Nance sign or pain over Mcburney's point.
MUSCLES/EXTREMITIES No abnormal range of motion, no swelling.
SKIN Warm, pink and dry. No rashes
NEUROLOGICAL Speech is clear and appropriate. Normal level of consciousness. 5/5 strength in all extremities.
PSYCH Normal mood and affect. Judgement/competence is appropriate
Course
Orders/Labs/Results
Orders:
Orders
10/17/24 20:37
IV Insert/Care/Rem.- Treatment PRN
10/17/24 20:40
Complete Blood Count/With Diff Urgent
Comprehensive Metabolic Panel Urgent
10/17/24 20:42
Ct Chest/Abd/Pel Angio W/Wo Iv Urgent
Reason For Exam: severe back pain
10/17/24 20:46
Acetaminophen [Tylenol] 650 mg PO NOW STA
10/17/24 21:48
Methocarbamol 1,000 mg PO NOW STA
10/17/24 22:34
Urinalysis Reflex To Culture Urgent
Date Specimen was Collected: 10/17/24
Time Specimen was Collected: 20:38
Urine Microscopic Reflex Cult Urgent
Urine Culture Urgent
RICH Source: U
Specimen Description:
Date Specimen was Collected: 10/17/24
Time Specimen was Collected: 20:38
10/17/24 23:12
Ketorolac [Toradol] 15 mg IV NOW STA
10/18/24 00:47
Morphine Sulfate 1 mg IV NOW STA
Abnormal Lab Results
10/17/24 10/17/24
20:40 22:34
MCH 32.3 H pg
(27.0-31.0)
MPV 11.1 H fL
(7.4-10.4)
Absolute Monos (auto) 0.7 H 10^3/uL
(0.1-0.6)
BUN 19 H mg/dl
(7-17)
Glucose 123 H mg/dl
(70-99)
Leukocyte Esterase Rfl 2+ A
(Negative)
Urine Bacteria (Reflex) Few A
(Negative)
10/17/24 20:40
10/17/24 20:40
Vital Signs
Initial and Last Documented VS:
Initial Vital Signs
Pulse Resp
71 14
10/17/24 20:07 10/17/24 20:07
Last Documented Vital Signs
Temp Pulse Resp BP Pulse Ox
99.0 F 71 19 124/81 97
10/17/24 20:15 10/18/24 00:00 10/18/24 00:00 10/18/24 00:00 10/18/24 00:00
*Pulse Oximetry
Oxygen Mode of Delivery: Room air
Patient hypoxic: no
*Critical Care Note
Total Time (30-74mins, 75-104mins- exclusive of procedures): Not Applicable
ED Attending Note
ED Attending Note
ED Attending Note:
patient with significant low back pain despite multiple doses of medications/multimodal pain control
she has no neurologic deficits, no saddle anesthesia, no incontintinence to suggest cauda equina syndrome or cord compression
CT scan negative for acute process
suspect MSK pain vs radiculopathy vs lumbar strain
will admit for continued symptomatic relief
-
Portions of this chart may have been created with voice recognition software.� Occasional wrong word or��sound alike� substitutions may have occurred due to the inherent limitations of voice recognition software.
Discharge Plan
Departure
Patient Disposition: Admit
Date of Disposition: 10/18/24
Time of Disposition: 00:49
Presentation/result/management discussed w/ accepting MD/DO: Hospitalist
Discharge Problem:
Intractable back pain
Prescriptions:
No Action
metformin 500 MG tablet
500 mg PO DAILY AT 0700
simvastatin 40 MG tablet
40 mg PO QPM
metformin 1,000 MG tablet
1,000 mg PO DAILY@1700
pioglitazone 30 MG tablet
30 mg PO DAILY
levothyroxine 50 mcg Tablet
50 mcg PO DAILY
lisinopril 20 mg Tablet
20 mg PO DAILY Qty: 1 0RF
Rx Instructions:
HOLD IF systolic blood pressure <130 while on [place].
acetaminophen [Tylenol] 325 mg Tablet
650 mg PO Q6HPRN PRN (Reason: mild pain)
calcium carbonate [Calcium 500] 500 mg calcium (1,250 mg) Tablet
500 mg PO QPM
Referrals:
Leighann Mata MD [Family Provider, Internal Medicine]
Interventions
Interventions:
*Risk Screen - Suicide Last Done: 10/17/24 20:15
*General Assessment Last Done: 10/17/24 20:15
*Neglect/Abuse Screening Last Done: 10/17/24 20:15
*ED- Fall Risk Assessment Last Done: 10/17/24 20:15
*ED COVID-19 Vaccine History Last Done: 10/17/24 20:15
ED-Musculoskeletal Assessment Last Done: 10/17/24 21:40
Discharge Date and Time
Print Language: PALAUAN
[2024-10-17 20:47] LABS: % Basophils 0.5 % (0-2); % Eosinophils 1.6 % (0-6); % Immature Granulocytes 0.2 % (0-0.5); % Lymphocytes 30.1 % (20.5-51.1); % Neutrophils 59.6 % (42.2-75.2); Absolute Basophils 0.1 10^3/uL (0-0.2); Absolute Eosinophils 0.2 10^3/uL (0-0.7); Absolute Lymphocytes 2.8 10^3/uL (1.2-3.4); Absolute Monocytes 0.7 10^3/uL (0.1-0.6); Absolute Neutrophils 5.5 10^3/uL (1.4-6.5); Hematocrit 40.1 % (37.0-47.0); Hemoglobin 13.6 g/dL (12.0-16.0); Mean Corp Hgb Conc. 33.9 g/dL (33.0-37.0); Mean Corpuscular Hgb 32.3 pg (27.0-31.0); Mean Corpuscular Volume 95.2 fL (81.0-99.0); Mean Platelet Volume 11.1 fL (7.4-10.4); Nucleated Red Blood Cells % 0 %; Platelet Count 247 10^3/uL (130-400); Red Blood Cell Count 4.21 10^6/uL (4.20-5.40); Red Cell Dist. Width 13.7 % (11.5-14.5); White Blood Cell Count 9.3 10^3/uL (4.8-10.8)
[2024-10-17 21:00] VITALS: BP 115/72
[2024-10-17 21:03] LABS: ALT (SGPT) 13 U/L (0-35); AST (SGOT) 19 U/L (14-36); Albumin 4.3 g/dl (3.5-5.0); Alkaline Phosphatase 41 U/L (38-126); Blood Urea Nitrogen 19 mg/dl (7-17); Calcium 9.4 mg/dl (8.4-10.2); Carbon Dioxide 22 mmol/L (22-30); Chloride 107 mmol/L (98-107); Estimated Creatinine Clearance 42 ml/min; Glucose 123 mg/dl (70-99); Potassium 4.8 mmol/L (3.5-5.1); Sodium 136 mmol/L (135-145); Total Bilirubin 0.6 mg/dl (0.2-1.3); Total Protein 7.1 g/dl (6.3-8.2)
[2024-10-17] MEDS: TYLENOL 650 MG PO (21:47)
[2024-10-17] MEDS: METHOCARBAMOL 1000 MG PO (21:58)
[2024-10-17 22:00] VITALS: BP 119/66
[2024-10-17 22:38] LABS: Urine Albumin Negative (Neg - Trace); Urine Bilirubin Negative (Negative); Urine Character Clear (Clear); Urine Color Yellow; Urine Glucose Negative (Negative); Urine Ketone Negative (Negative); Urine Leukocyte 2+ (Negative); Urine Nitrite Negative (Negative); Urine Occult Blood Negative (Negative); Urine Urobilinogen Negative (Neg - 1+)
[2024-10-17 22:47] LABS: Urine Bacteria Few (Negative); Urine Red Blood Cell 0-2 /HPF (0-2)
[2024-10-17] MEDS: TORADOL 15 MG IV (23:19)
[2024-10-17 23:21] VITALS: BP 146/78
[2024-10-18] VITALS (9 sets, daily range): BP systolic 114–160; BP diastolic 62–93; PULSE 65; BMI 29.7
[2024-10-18] MEDS: MORPHINE SULFATE 1 MG IV (00:50)
--- NOTE | 2024-10-18 02:05 | HPS.HSE ---
Family Physician
-
Family Physician: Leighann Mata MD
Chief Complaint
-
Back Pain
History of Present Illness
Patient is an 79y F with PMH significant for hypertension, DM-II and long history of back spasms who presents to ED complaining of back spasms. Patient reports intermittent symptoms x 20 years of R low back pain and spasm - usually about twice
per year. She previously took muscle relaxants at home when symptoms flared with good control of her symptoms. She more recently relocated into assisted living and no longer has access to these medications (cannot recall specific med). Patient
states that her current symptoms started around 2PM today while she was bending down folding / putting away laundry. She has pain in the right lower back that is episodic and 'feels like spasms'. She has no radiation of the pain into the buttocks,
leg, abdomen, etc.
No recent fall, injury, trauma.
Medical History
Past Medical History
Past Medical History: Reports Other
Additional Past Medical History:
Hypertension
DM-II
Lewy Body Dementia
Hypothyroidism
Anxiety / Depression
Past Surgical History: Reports Other
Additional Past Surgical History:
Left Reverse TSA (x2)
Right Rotator Cuff Surgery
Cataracts
Social History
Tobacco: Smoker (Current every day smoker.)
Alcohol: None
Drug: None
Living: Assisted Living
Family History
Family History: Not pertinent
Allergies / Home Medications
Allergies reflects when Allergies were last updated in [facility].
Home Medications with original date entered in [facility]
Allergy/Medication List:
Allergies
Allergy/AdvReac Type Severity Reaction Status Date / Time
Oxycodone AdvReac hyperactivi Uncoded 05/01/24 17:06
ty
Home Medications
metformin 500 mg tablet 500 mg PO DAILY AT 0700 03/16/19
pioglitazone 30 mg tablet 30 mg PO DAILY 03/16/19
simvastatin 40 mg tablet 40 mg PO QPM 03/16/19
levothyroxine 50 mcg tablet 50 mcg PO DAILY 01/19/24
lisinopril 20 mg tablet 20 mg PO DAILY #1 tab 01/20/24
acetaminophen 325 mg tablet (Tylenol) 650 mg PO Q6HPRN PRN mild pain 08/10/24
calcium carbonate 500 mg PO QPM 08/10/24
alendronate 70 mg tablet (Fosamax) 70 mg PO QWEEK 10/18/24
Review of Systems
-
History Source: Patient and Family
A 12 point ROS was completed and negative except as noted: Yes
Constitutional: Denies Fever or Chills
Respiratory: Denies Cough or Trouble Breathing
Cardiac: Denies Chest Pain or Palpitations
Abdomen/GI: Denies Abdominal Pain, Nausea, Vomiting or Diarrhea
: Denies Dysuria or Frequency
Musculoskeletal: Reports Other (R lower back pain / spasms.); Denies Joint Pain or Edema
Neurological: Denies Dizzy or Headache
Psych: Denies Depression or Anxiety
Physical Exam
Vital Signs
Vital Signs
Temp Pulse Resp BP Pulse Ox
99.0 F 68 17 114/93 97
10/17/24 20:15 10/18/24 01:00 10/18/24 01:00 10/18/24 01:00 10/18/24 01:00
Physical Exam
General: Other (79y F in mild distress due to intermittent pain / spasm.)
HEENT: Moist mucous membranes
Respiratory: Clear; No Wheezes, Rales or Rhonchi
Cardiac: S1/S2 and Regular Rhythm; No Murmur
GI: Soft, Non Tender, Non Distended and Normal Bowel Sounds
Musculoskeletal: No Clubbing, No Cyanosis, No Edema and Other (Pos tenderness / spasticity appreciated over the R lower lumbar paraspinal muscles. No overlying rash / skin lesions.)
Neuro: AO x 3
Laboratory Results
-
10/17/24 20:40
10/17/24 20:40
Laboratory Results
Total Bilirubin 0.6 mg/dl (0.2-1.3) 10/17/24 20:40
AST 19 U/L (14-36) 10/17/24 20:40
ALT 13 U/L (0-35) 10/17/24 20:40
Alkaline Phosphatase 41 U/L (38-126) 10/17/24 20:40
Impression/Plan
-
A/P: Patient is an 79y F with PMH significant for hypertension and DM-II who presents to ED complaining of low back pain.
Lumbar Spasm
- Observe overnight for further evaluation and treatment.
- Supportive care with anti-inflammatories, muscle relaxants, heat, etc.
- PT eval in AM.
- Follow for clinical improvement.
Benign Hypertension
- Stable. Continue usual meds.
DM-II
- Stable. Continue metformin / pioglitazone.
Dementia
- New / in progress diagnosis.
- Newly moved to assisted living.
- Monitor for any agitation / behavioral issues / etc.
DVT Prophylaxis: SCDs
Code Status: Full
--- NOTE | 2024-10-18 03:30 | PTCARENOTE ---
Pt a 79 y/o F arrived from ED at 03:13 with Intractable Back Pain. Pt AOx3, but recently dx with Lewy Body Dementia, bed alarm on bed because the daughter told ED she 'Sundowns' and has had multiple falls, bed in a low position, call light in reach,
care ongoing.
[2024-10-18] MEDS: MORPHINE SULFATE 2 MG IV (04:50)
[2024-10-18] MEDS: SYNTHROID 50 MCG PO (05:00)
[2024-10-18 07:36] LABS: Hematocrit 36.9 % (37.0-47.0); Hemoglobin 12.7 g/dL (12.0-16.0); Mean Corp Hgb Conc. 34.4 g/dL (33.0-37.0); Mean Corpuscular Hgb 32.6 pg (27.0-31.0); Mean Corpuscular Volume 94.9 fL (81.0-99.0); Mean Platelet Volume 10.9 fL (7.4-10.4); Platelet Count 213 10^3/uL (130-400); Red Blood Cell Count 3.89 10^6/uL (4.20-5.40); Red Cell Dist. Width 13.5 % (11.5-14.5); White Blood Cell Count 8.6 10^3/uL (4.8-10.8)
[2024-10-18 07:53] LABS: Glucose - Point of Care 172 mg/dl (70-99)
[2024-10-18 07:57] LABS: Glycohemoglobin (HgbA1c) 7.2 % (4.0-5.6)
[2024-10-18] MEDS: TYLENOL 1000 MG PO (08:04)
[2024-10-18] MEDS: ACTOS 30 MG PO (08:05)
[2024-10-18] MEDS: GLUCOPHAGE 500 MG PO (08:05)
[2024-10-18] MEDS: ZESTRIL 20 MG PO (08:05)
[2024-10-18] MEDS: NOVOLOG FLEXPEN-LOW RESISTANCE 1 UNITS SC (08:12)
[2024-10-18 08:25] LABS: Blood Urea Nitrogen 16 mg/dl (7-17); Calcium 8.9 mg/dl (8.4-10.2); Carbon Dioxide 23 mmol/L (22-30); Chloride 105 mmol/L (98-107); Estimated Creatinine Clearance 41 ml/min; Glucose 177 mg/dl (70-99); Potassium 4.5 mmol/L (3.5-5.1); Sodium 134 mmol/L (135-145)
--- NOTE | 2024-10-18 10:27 | CM ---
Addendum entered by Harriett Coe RN 10/18/24 14:49:
Correction:
Call report to: [phone], ext [phone]
Addendum entered by Harriett Coe RN 10/18/24 12:11:
Discharge back to [facility].
Call report to: [phone] ext [phone]
Fax report to: [phone]
Medical necessity and transport forms on chart.
Original Note:
Reviewed the chart notes and spoke with the patient at the bedside. The patient is admitted under observational status. The [place] letter was provided and explained. The patient had no questions with regards to the letter.
The patient resides alone in [facility] for the past few months. The patient has a rolling walker and handicap equipped bathroom. The patient reports no VN or SNF in the past. The patient is current with [facility] in her facility. CM
continues to be available to patient/family and is monitoring medical plan for needs at discharge.
Plan: Discharge plans will depend on the patient's progress.
--- NOTE | 2024-10-18 11:54 | W.DCSUMMARY ---
Discharge Summary
Discharge Data
Date of Admission: 10/18/24
Date of Discharge: 10/18/24
-
Pending Results: No
Hospital Course
79y F with PMH significant for hypertension, DM-II and long history of back spasms
Presented with flare of back spasms. Has been an ongoing intermittent issue for last 20 years. Affecting the right lower back typically flares twice per year. Does not have muscle relaxants. Triggered by bending down folding putting away
laundry. While in the ED CT chest abdomen pelvis completed without acute findings. Please see full report down below. Admit for intractable back pain.
Will need to follow-up with outpatient vascular surgery and cardiology for CT findings.
CTCAP
IMPRESSION:
No CTAevidence for a dissection, aneurysm, or intramural hematoma of the thoracic aorta or abdominal aorta.
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
Severe coronary artery calcifications. Please correlate with symptoms of and risk factors for coronary artery disease, with further workup as clinically appropriate.
Cholelithiasis.
Seen and examined the day of discharge. No new complaints. No acute overnight events.
States back pain has improved significantly from yesterday. Able to ambulate. He is able to use bathroom well. Moving bowels urinating well. Tolerating diet well
No numbness tingling loss of sensation lower extremity. No saddle anesthesia. Without evidence of weakness.
NAD
Scleral Anicteric
MMM
No JVD
CTABL
RRR, S1/S2
Soft, NT, ND, BS+
Warm, Dry
AAOx3
Calm
More than 30 minutes spent in discharge including
Final examination of the patient
Summarizing hospital stay
Instructions for continuing care to all relevant caregivers
Preparation of discharge records, prescriptions, and referral forms
Total time spent (in minutes): 33mins
Discharge Plan
-
Patient Disposition: Assisted Living
Discharge Diagnosis/Procedures: Intractable back pain
Condition: Good
Diet: As tolerated
Activity: As tolerated
Activity Restrictions/Additional Instructions:
Presented with flare of back spasms. Has been an ongoing intermittent issue for last 20 years. Affecting the right lower back typically flares twice per year. Does not have muscle relaxants. Triggered by bending down folding putting away
laundry. While in the ED CT chest abdomen pelvis completed without acute findings. Please see full report down below. Admit for intractable back pain.
Will need to follow-up with outpatient vascular surgery and cardiology for CT findings.
CTCAP
IMPRESSION:
No CTAevidence for a dissection, aneurysm, or intramural hematoma of the thoracic aorta or abdominal aorta.
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
Severe coronary artery calcifications. Please correlate with symptoms of and risk factors for coronary artery disease, with further workup as clinically appropriate.
Cholelithiasis.
Referrals:
Jayant Díaz MD [Active, Cardiology] - in two to three weeks
Referral Note: for severe coronary calfication
Alexandre Erwin MD [Active, Vascular Surgery] - in two to four weeks
Referral Note: severe subclavian stenosis
Leighann Mata MD [Family Provider, Internal Medicine]
Prescriptions:
New
cyclobenzaprine 5 mg tablet
5 mg PO TID PRN (Reason: muscle spasm) Qty: 30 0RF
Rx Instructions:
sedating
avoid operating heavy machinery
Continued
metformin 500 MG tablet
500 mg PO DAILY AT 0700
simvastatin 40 MG tablet
40 mg PO QPM
pioglitazone 30 MG tablet
30 mg PO DAILY
levothyroxine 50 mcg Tablet
50 mcg PO DAILY
lisinopril 20 mg Tablet
20 mg PO DAILY Qty: 1 0RF
Rx Instructions:
HOLD IF systolic blood pressure <130 while on [place].
acetaminophen [Tylenol] 325 mg Tablet
650 mg PO Q6HPRN PRN (Reason: mild pain)
calcium carbonate 500 mg calcium (1,250 mg) Tablet
500 mg PO QPM
alendronate [Fosamax] 70 mg Tablet
70 mg PO QWEEK
Discharge Orders:
Discharge Patient (As Directed); Ordered 10/18/24
Ordered By: Ken Vaughan
Discharge Date and Time
Print Language: SWEDISH
[2024-10-18 12:07] LABS: Glucose - Point of Care 196 mg/dl (70-99)
[2024-10-18] MEDS: NOVOLOG FLEXPEN-LOW RESISTANCE SC (12:41)
--- NOTE | 2024-10-18 13:39 | PTCARENOTE ---
Pt ate meal prior to waiting for insulin. Pt BS [address] Vaughan notified and instructed to hold off on insulin. Care ongoing.
== END 2024-10-18 15:45 | disposition home or self-care (01) ==
LOC: 2 SOUTH 02:12
PROVIDERS: ADMITTING PHYSICIAN Hospitalist; ATTENDING PHYSICIAN Hospitalist; EMERGENCY PHYSICIAN Emergency Medicine; FAMILY PHYSICIAN Student in an Organized Health Care Education/Training Program
DX: M54.9 Dorsalgia, unspecified (principal); M54.50 Low back pain, unspecified; F17.200 Nicotine dependence, unspecified, uncomplicated; I10 Essential (primary) hypertension; E11.9 Type 2 diabetes mellitus without complications; M62.830 Muscle spasm of back; I25.10 Atherosclerotic heart disease of native coronary artery without angina pectoris; K80.20 Calculus of gallbladder without cholecystitis without obstruction
CPT/HCPCS: 71275; 74174; 80048; 80053; 81003; 81015; 82962; 83036; 85025; 85027; 87086; 96374; 97162; 97530; 99285; G0378; Q9967

== ENCOUNTER → 2024-12-02 08:17 | Outpatient (REF) | payer MEDICARE, OTHER, SELFPAY | LOC: HWRAD 08:17 | PROVIDERS: ATTENDING PHYSICIAN Surgery Vascular Surgery; FAMILY PHYSICIAN Student in an Organized Health Care Education/Training Program | DX: I74.8 Embolism and thrombosis of other arteries (principal); I74.9 Embolism and thrombosis of unspecified artery | CPT/HCPCS: 93880 ==

== ENCOUNTER → 2025-02-03 09:15 | Outpatient (REF) | payer MEDICARE, OTHER, SELFPAY | LOC: HWRCS 09:15 | PROVIDERS: ATTENDING PHYSICIAN Student in an Organized Health Care Education/Training Program; FAMILY PHYSICIAN Student in an Organized Health Care Education/Training Program | DX: R01.1 Cardiac murmur, unspecified (principal) | CPT/HCPCS: 93306 ==

== ENCOUNTER 2025-04-01 08:26 | Emergency (ER) | payer MEDICARE, OTHER, SELFPAY ==
--- NOTE | 2025-04-01 08:54 | ED.GENMED ---
History of Present Illness
<Willy Roberts PA-C - Last Filed: 04/01/25 10:25>
General
Chief Complaint: Fall
Source: patient
Exam Limitations: none
Time Seen by Provider: 04/01/25 08:40
History of Present Illness
History of Present Illness:
80-year-old female presents from [facility] where she lives independently in her apartment typically uses a walker to ambulate presents after a fall. She tripped in the shower fell forward and landing on her right side. She was brought
here by EMS. She is not anticoagulated. No loss of conscious. She denies neck pain. She does note right shoulder pain and headache. No chest pain or shortness of breath. No other
Past History
<Willy Roberts PA-C - Last Filed: 04/01/25 10:25>
Past History
ED Past Medical History: HTN, Hypercholesterolemia, NIDDM and Hypothyroidism
ED Past Surgical History: , Orthopedic (Left shoulder replacement, Right rotator cuff surgery) and Other (Cataracts Left, )
Social History
Tobacco: Smoker
Alcohol: None
Drug: None
Personal:
Living: alone
Phy Exam
<Willy Roberts PA-C - Last Filed: 04/01/25 10:25>
Physical Exam
Physical Exam:
General: Well-appearing female no acute distress
HEENT: Normal cephalic abrasion with hematoma noted to the right forehead and periorbital ecchymosis to the right eye. Pupils equal round react light extract motions are intact TMs normal
Heart: Regular rate and rhythm lungs: Clear no wheeze
Musculoskeletal exam: Spine nontender right shoulder tender superiorly over the midportion of the clavicle. Right elbow and wrist are nontender. Good range of motion of the lower extremities
Neurologic alert and oriented conversing appropriately good strength
Course
<Willy Roberts PA-C - Last Filed: 04/01/25 10:25>
Orders/Labs/Results
Orders:
Orders
04/01/25 08:53
CT Cervical Spine W/o Iv Contr Urgent
Comment:
Reason For Exam: fall
CT Head W/o Iv Contrast Urgent
Comment:
Reason For Exam: fall
CR Shoulder, Trauma - Right Urgent
Comment:
Reason For Exam: fall
04/01/25 10:14
Sling Right-Treatment ONCE
Complete Blood Count/With Diff Urgent
Comprehensive Metabolic Panel Urgent
Morphine Sulfate 2 mg IV NOW STA
04/01/25 10:23
Levetiracetam Injectable [Keppra] 1,000 mg IV NOW STA
Vital Signs
Initial and Last Documented VS:
Initial Vital Signs
Temp Pulse Resp BP Pulse Ox
98.2 F 63 18 148/85 97
04/01/25 08:28 04/01/25 08:28 04/01/25 08:28 04/01/25 08:28 04/01/25 08:28
Last Documented Vital Signs
Temp Pulse Resp BP Pulse Ox
98.2 F 63 18 148/85 97
04/01/25 08:28 04/01/25 08:28 04/01/25 08:28 04/01/25 08:28 04/01/25 08:55
<Marcin Bernabe DO - Last Filed: 04/01/25 10:25>
Orders/Labs/Results
Orders:
Orders
04/01/25 08:53
CT Cervical Spine W/o Iv Contr Urgent
Comment:
Reason For Exam: fall
CT Head W/o Iv Contrast Urgent
Comment:
Reason For Exam: fall
CR Shoulder, Trauma - Right Urgent
Comment:
Reason For Exam: fall
04/01/25 10:14
Sling Right-Treatment ONCE
Complete Blood Count/With Diff Urgent
Comprehensive Metabolic Panel Urgent
Morphine Sulfate 2 mg IV NOW STA
04/01/25 10:23
Levetiracetam Injectable [Keppra] 1,000 mg IV NOW STA
Vital Signs
Initial and Last Documented VS:
Initial Vital Signs
Temp Pulse Resp BP Pulse Ox
98.2 F 63 18 148/85 97
04/01/25 08:28 04/01/25 08:28 04/01/25 08:28 04/01/25 08:28 04/01/25 08:28
Last Documented Vital Signs
Temp Pulse Resp BP Pulse Ox
98.2 F 63 18 148/85 97
04/01/25 08:28 04/01/25 08:28 04/01/25 08:28 04/01/25 08:28 04/01/25 08:55
<Willy Roberts PA-C - Last Filed: 04/01/25 10:25>
MDM/Problems Addressed
Differential Diagnosis Includes:
Mechanical fall with head strike and right shoulder pain. Consider contusion versus hematoma versus intracranial hemorrhage versus shoulder fracture or dislocation. CT of the head and cervical spine ordered. X-ray of the right shoulder ordered
<Willy Roberts PA-C - Last Filed: 04/01/25 10:25>
*Pulse Oximetry
SaO2: 97
<Marcin Bernabe DO - Last Filed: 04/01/25 10:25>
*Radiology
Radiology exam reviewed: radiology read reviewed
*Pulse Oximetry
Patient hypoxic: no
*Critical Care Note
Total Time (30-74mins, 75-104mins- exclusive of procedures): 31
<Willy Roberts PA-C - Last Filed: 04/01/25 10:25>
Update Note
Update Note:
CT demonstrates small acute traumatic subarachnoid hemorrhage in the superior left parietal lobe. There is an associated large 7.3 cm cube scalp soft tissue hematoma over the right frontal bone. X-ray of the right shoulder demonstrates clavicle
fracture. CT of the cervical spine negative for acute traumatic injuries. Patient now with her caregiver. Relayed the information to both the patient and the caregiver. Patient has had care at [facility] before we will attempt to transfer her to
[facility]
ED Attending Note
<GLENNY Farah-Jose - Last Filed: 04/01/25 10:25>
-
Portions of this chart may have been created with voice recognition software.� Occasional wrong word or��sound alike� substitutions may have occurred due to the inherent limitations of voice recognition software.
<Marcin Bernabe DO - Last Filed: 04/01/25 10:25>
ED Attending Note
Patient seen and examined by attending physician: Yes
I performed the substantive portion of visit, reviewed & personally made and approve the management plan that is documented in note by myself or KENZIE.: Yes
ED Attending Note:
Seen with PA examined independently 80-year-old female diabetic fell struck her head traumatic subarachnoid no C-spine fracture no blood thinners plan will be transferred to trauma center of the patient's choosing
Discharge Plan
Departure
Patient Disposition: Acute Care Hospital
Date of Disposition: 04/01/25
Time of Disposition: 10:24
Discharge Problem:
Subarachnoid hemorrhage
Prescriptions:
No Action
metformin 500 MG tablet
500 mg PO DAILY
simvastatin 40 MG tablet
40 mg PO QPM
pioglitazone 30 MG tablet
30 mg PO DAILY
levothyroxine 50 mcg Tablet
50 mcg PO DAILY
lisinopril 20 mg Tablet
20 mg PO DAILY Qty: 1 0RF
acetaminophen [Tylenol] 325 mg Tablet
650 mg PO Q6HPRN PRN (Reason: mild pain)
alendronate [Fosamax] 70 mg Tablet
70 mg PO WATKINS
ascorbic acid (vitamin C) [Vitamin C] 500 mg Tablet
500 mg PO DAILY
bupropion HCl [Wellbutrin XL] 150 mg Tablet Extended Release 24 Hr
150 mg PO DAILY
cholecalciferol (vitamin D3) [Vitamin D3] 50 mcg (2,000 unit) Tablet
50 mcg PO DAILY
cyanocobalamin (vitamin B-12) 2,500 mcg Tablet
2,500 mcg PO DAILY
diphenhydramine HCl [Benadryl] 25 mg Capsule
25 mg PO Q6HPRN PRN (Reason: itching)
aspirin 81 mg Tablet
81 mg PO DAILY
loratadine [Claritin] 10 mg Tablet
10 mg PO DAILY
cyclobenzaprine 5 mg Tablet
5 mg PO Q8HPRN PRN (Reason: muscle spasms)
calcium carbonate-vitamin D3 [Oyster Shell Calcium-Vit D3] 500 mg-5 mcg (200 unit) Tablet
1 tab PO QPM
metformin 500 mg Tablet
1,000 mg PO DAILY@1200
Referrals:
Sonja Quinones MD [Family Provider, Internal Medicine]
Hospital Transfer
Other hospital: [facility]
I certify that the patient requires transfer: Yes
Discussed case with accepting physician: Mattie
Reason for transfer: higher level of care and specialties available
Interventions
Interventions:
*Risk Screen - Suicide Last Done: 04/01/25 08:34
*Neglect/Abuse Screening Last Done: 04/01/25 08:34
*ED COVID-19 Vaccine History Last Done: 04/01/25 08:34
*ED Influenza Vaccine History Last Done: 04/01/25 08:34
Discharge Date and Time
Print Language: AMERICAN
[2025-04-01] MEDS: MORPHINE SULFATE 2 MG IV (10:29)
[2025-04-01] MEDS: KEPPRA 1000 MG IV (10:38)
[2025-04-01 10:46] LABS: Hematocrit 39.1 % (37.0-47.0); Hemoglobin 13.3 g/dL (12.0-16.0); Mean Corp Hgb Conc. 34.0 g/dL (33.0-37.0); Mean Corpuscular Volume 97.3 fL (81.0-99.0); Nucleated Red Blood Cells % 0 %; Platelet Count 224 10^3/uL (130-400); Red Cell Dist. Width 13.1 % (11.5-14.5)
[2025-04-01 10:56] LABS: ALT (SGPT) 15 U/L (0-35); AST (SGOT) 22 U/L (14-36); Albumin 4.2 g/dl (3.5-5.0); Alkaline Phosphatase 35 U/L (38-126); Blood Urea Nitrogen 18 mg/dl (7-17); Calcium 9.6 mg/dl (8.4-10.2); Carbon Dioxide 24 mmol/L (22-30); Chloride 103 mmol/L (98-107); Estimated Creatinine Clearance 49 ml/min; Glucose 158 mg/dl (70-99); Potassium 4.7 mmol/L (3.5-5.1); Sodium 136 mmol/L (135-145); Total Protein 7.2 g/dl (6.3-8.2); eGFR > 60.00
== END 2025-04-01 12:44 | disposition short-term general hospital (02) ==
LOC: EMR 08:26
PROVIDERS: Physician Assistant; EMERGENCY PHYSICIAN Emergency Medicine; FAMILY PHYSICIAN Internal Medicine
DX: S06.6X0A Traumatic subarachnoid hemorrhage without loss of consciousness, initial encounter (principal); S00.93XA Contusion of unspecified part of head, initial encounter; S42.001A Fracture of unspecified part of right clavicle, initial encounter for closed fracture; W18.2XXA Fall in (into) shower or empty bathtub, initial encounter; Y93.E1 Activity, personal bathing and showering; I10 Essential (primary) hypertension; E03.9 Hypothyroidism, unspecified; E11.9 Type 2 diabetes mellitus without complications; E78.00 Pure hypercholesterolemia, unspecified; F17.200 Nicotine dependence, unspecified, uncomplicated
CPT/HCPCS: 96374; 96375; 99291; 70450; 72125; 73030; 80053; 85025

== ENCOUNTER → 2025-04-07 10:57 | Outpatient (REF) | payer OTHER, MEDICARE, SELFPAY ==
[2025-04-07 11:46] LABS: Hematocrit 37.1 % (37.0-47.0); Hemoglobin 11.7 g/dL (12.0-16.0); Mean Corp Hgb Conc. 31.5 g/dL (33.0-37.0); Mean Corpuscular Volume 103.9 fL (81.0-99.0); Nucleated Red Blood Cells % 0 %; Platelet Count 250 10^3/uL (130-400); Red Cell Dist. Width 13.1 % (11.5-14.5)
[2025-04-07 12:02] LABS: Blood Urea Nitrogen 26 mg/dl (7-17); Calcium 8.8 mg/dl (8.4-10.2); Carbon Dioxide 22 mmol/L (22-30); Chloride 104 mmol/L (98-107); Glucose 255 mg/dl (70-99); Potassium 4.7 mmol/L (3.5-5.1); Sodium 133 mmol/L (135-145); eGFR > 60.00
== END ==
LOC: OLABP 10:57
PROVIDERS: ATTENDING PHYSICIAN Family Medicine
DX: S06.6X0D Traumatic subarachnoid hemorrhage without loss of consciousness, subsequent encounter (principal); W19.XXXD Unspecified fall, subsequent encounter; S42.001D Fracture of unspecified part of right clavicle, subsequent encounter for fracture with routine healing; N18.31 Chronic kidney disease, stage 3a; E11.22 Type 2 diabetes mellitus with diabetic chronic kidney disease; E03.9 Hypothyroidism, unspecified; E78.00 Pure hypercholesterolemia, unspecified
CPT/HCPCS: 36415; 80048; 85025

== ENCOUNTER → 2025-04-08 10:59 | Outpatient (REF) | payer OTHER, MEDICARE, SELFPAY ==
[2025-04-08 12:31] LABS: Blood Urea Nitrogen 23 mg/dl (7-17); Calcium 8.9 mg/dl (8.4-10.2); Carbon Dioxide 22 mmol/L (22-30); Chloride 106 mmol/L (98-107); Glucose 137 mg/dl (70-99); Potassium 4.7 mmol/L (3.5-5.1); Sodium 135 mmol/L (135-145); eGFR > 60.00
== END ==
LOC: OLABP 10:59
PROVIDERS: ATTENDING PHYSICIAN Family Medicine
DX: S06.6X0D Traumatic subarachnoid hemorrhage without loss of consciousness, subsequent encounter (principal); W19.XXXD Unspecified fall, subsequent encounter; N18.31 Chronic kidney disease, stage 3a; E11.22 Type 2 diabetes mellitus with diabetic chronic kidney disease; E03.9 Hypothyroidism, unspecified; E78.00 Pure hypercholesterolemia, unspecified
CPT/HCPCS: 36415; 80048